=== PATIENT | male | born 1995 | race Caucasian/White ===

== ENCOUNTER 2018-11-16 17:06 | Emergency (ER) | payer OTHER ==
[~2018-11-16] VITALS: Ht 182.9 cm; Wt 86.6 kg
[2018-11-16 17:18] VITALS: Ht 182.9 cm; Wt 86.6 kg
[2018-11-16 20:21] VITALS: BP 129/80
== END 2018-11-16 20:21 | disposition home or self-care (01) ==
LOC: ED 17:06
DX: S30.22XA Contusion of scrotum and testes, initial encounter (principal); Y04.8XXA Assault by other bodily force, initial encounter; Y93.89 Activity, other specified; Y92.89 Other specified places as the place of occurrence of the external cause; Y99.8 Other external cause status